=== PATIENT | female | born 1970 | race Caucasian/White ===

== ENCOUNTER 2021-07-13 14:51 | Outpatient (CLI) | payer OTHER, SELFPAY ==
--- NOTE | 2021-07-13 15:01 | XRR_ITS ---
PROCEDURE INFORMATION: Exam: XR Left Knee Exam date and time: 07/13/2021 3:01 PM Age: 50 years old Clinical indication: Pain; Knee; Left; Additional info: Acute L knee pain TECHNIQUE: Imaging protocol: XR Left knee. Views: 3 views. COMPARISON: No relevant prior studies available. FINDINGS: Bones/joints: Normal. Soft tissues: Normal. XR/XR knee LT 3V* [id number] IMPRESSION: Negative for bony abnormality
== END 2021-07-13 14:52 | disposition home or self-care (01) ==
LOC: RAD 14:59
PROVIDERS: PCP Family Medicine; Visit Provider Electrodiagnostic Medicine
DX: M25.562 Pain in left knee (principal)
CPT/HCPCS: 73562

== ENCOUNTER 2023-01-26 10:45 | Outpatient (CLI) | payer OTHER, SELFPAY ==
--- NOTE | 2023-01-26 11:29 | XRR_ITS ---
PROCEDURE INFORMATION: Exam: XR Chest Exam date and time: 01/26/2023 11:32 AM Age: 52 years old Clinical indication: Patient HX: Ex smoker, cough for 1 week TECHNIQUE: Imaging protocol: Radiologic exam of the chest. Views: 2 views. COMPARISON: No relevant prior studies available. FINDINGS: Lungs: There is no consolidation. Pleural spaces: There is no pleural effusion or pneumothorax. Heart/Mediastinum: Cardiomediastinal contours are unremarkable. Bones/joints: Bones are unremarkable. XR/XR chest 2V* [id number] IMPRESSION: No acute findings.
== END 2023-01-26 10:46 | disposition home or self-care (01) ==
PROVIDERS: PCP Family Medicine; Visit Provider Family Medicine
DX: R05.9 Cough, unspecified (principal); F17.210 Nicotine dependence, cigarettes, uncomplicated
CPT/HCPCS: 71046

== ENCOUNTER 2023-02-28 14:58 | Outpatient (CLI) | payer OTHER, SELFPAY ==
--- NOTE | 2023-02-28 15:11 | CT_ITS ---
WS: [id number] CT HEAD NONCONTRAST HISTORY: DIZZINESS, CONCUSSION WITH LOSS OF CONSCIOUSNESS TECHNIQUE: Contiguous axial imaging performed through the brain in 2.5 mm imaging. Bone and soft tiss ue windows. Sagittal and coronal reformats reviewed. All CT scans at [facility] use at least one of these dose optimization techniques: automated exposure control; mA and/or kV adjustment per pa tient size (includes targeted exams where dose is matched to clinical indication); or iterative recon struction. DLP: 995.88 mGy.cm COMPARISON: None available. No acute intracranial hemorrhage, midline shift or mass effect. No atrophy or prior infarcts or herniation. Prominent perivascular spaces bilaterally along the infe rior basal ganglia versus very small lacunar infarcts. Ventricles: Normal size with no hydrocephalus. No inferior displacement of cerebellar tonsils. Paranasal sinuses: As visualized are clear. Mastoid air cells: Well pneumatized. Calvarium and scalp: Skull is intact with no soft tissue edema or swelling. CT/CT head wo con* [id number] IMPRESSION: 1. No acute intracranial hemorrhage or edema. 2. Small perivascular spaces versus lacunar infarcts along the inferior basal ganglia. Favor perivascular spaces.
== END 2023-02-28 14:59 | disposition home or self-care (01) ==
LOC: RAD 15:04
PROVIDERS: PCP Family Medicine; Visit Provider Family Medicine
DX: R42 Dizziness and giddiness (principal); R41.3 Other amnesia; R40.20 Unspecified coma; S06.0XAA Concussion with loss of consciousness status unknown, initial encounter; X58.XXXA Exposure to other specified factors, initial encounter
CPT/HCPCS: 70450

== ENCOUNTER → 2023-12-09 12:07 | Outpatient (BNVA) | payer BC, SELFPAY | PROVIDERS: PCP Family Medicine; Visit Provider Emergency Medicine | DX: R07.9 Chest pain, unspecified (principal); R06.02 Shortness of breath | CPT/HCPCS: 71046 ==

== ENCOUNTER 2023-12-27 16:14 | Outpatient (CLI) | payer BC, SELFPAY ==
--- NOTE | 2023-12-27 16:24 | XRR_ITS ---
PROCEDURE INFORMATION: Exam: XR Left Ribs Exam date and time: 12/27/2023 4:28 PM Age: 53 years old Clinical indication: Injury or trauma; Fall; Rib area, left side; Blunt trauma; Additional info: Rib pain TECHNIQUE: Imaging protocol: Radiologic exam of the left ribs. Views: 2 views. COMPARISON: CR XR chest 2V* [id number] 12/09/2023 12:15 PM FINDINGS: Bones/joints: No evidence of rib fracture. Soft tissues: Normal. XR/XR ribs LT 2V* [id number] IMPRESSION: No acute findings.
== END 2023-12-27 16:15 | disposition home or self-care (01) ==
LOC: RAD 16:18
PROVIDERS: PCP Family Medicine; Visit Provider Family Medicine
DX: R07.81 Pleurodynia (principal); W19.XXXA Unspecified fall, initial encounter
CPT/HCPCS: 71100

== ENCOUNTER 2024-09-17 10:20 | Outpatient (CLI) | payer BC, SELFPAY ==
--- NOTE | 2024-09-17 10:26 | XR_ITS ---
WS: [id number] XR lumbar spine 6V w f/e [id number] REASON FOR EXAM: LOW BACK PAIN FINDINGS: Mild dextroscoliosis. Normal lordosis. Mild superior endplate compression deformities L1-L3. Appear chronic. Moderate narrowing of the disc spaces at L1-L2, L2-L3, and L5-S1. No spondylolysis. In the neutral position 5 mm of anterolisthesis of L3 in relation to L2. In the neutral position 4 mm of anterolisthesis of L4 in relation to L3. Above listheses are relatively stable in flexion and reduces somewhat in extension. Moderate degenerative changes in the facet joints at L5 5 S1. XR/XR lumbar spine 6V w f/e [id number] IMPRESSION: Degenerative spondylosis as above.
--- NOTE | 2024-09-17 10:26 | XR_ITS ---
WS: [id number] XR hip LT 2-3V wo/w pel* [id number] REASON FOR EXAM: LEFT HIP JOINT PAIN FINDINGS: No fracture or focal bone lesion. Moderate narrowing of the posterior inferior joint space with mild subchondral sclerosis of the aceta bulum. Anterior superior joint space is relatively well-preserved. No abnormality in the femoral head. XR/XR hip LT 2-3V wo/w pel* [id number] IMPRESSION: Mild to moderate osteoarthritis in the left hip as above.
== END 2024-09-17 10:21 | disposition home or self-care (01) ==
LOC: RAD 10:22
PROVIDERS: PCP Family Medicine; Visit Provider Family Medicine
DX: M43.16 Spondylolisthesis, lumbar region (principal); M51.360 Other intervertebral disc degeneration, lumbar region with discogenic back pain only
CPT/HCPCS: 72114; 73502

== ENCOUNTER 2024-09-24 07:49 | Outpatient (CLI) | payer BC, SELFPAY ==
--- NOTE | 2024-09-24 07:53 | MM_ITS ---
WS: [id number] BILATERAL 3D TOMOSYNTHESIS DIGITAL SCREENING MAMMOGRAPHY WITH CAD CLINICAL INFORMATION: SCREENING HISTORY: Screening mammogram. No current complaints. COMPARISON: 2019 TECHNIQUE: Bilateral CC and MLO views. FINDINGS: Scattered fibroglandular densities bilaterally. No suspicious focal mass, asymmetry, calcifications, or architectural distortion. No evidence of malignancy. A few tiny incidental punctate calcifications . MM/MM [facility] tomosynthesis [id number] IMPRESSION: DENSITY: There are scattered areas of fibroglandular density. BI-RADS: 2 - Benign. FOLLOW UP: 1 Year Follow-up Recommend return to annual screening mammography.
== END 2024-09-24 07:50 | disposition home or self-care (01) ==
LOC: RAD 07:50
PROVIDERS: PCP Family Medicine; Visit Provider Family Medicine
DX: Z12.31 Encounter for screening mammogram for malignant neoplasm of breast (principal); R92.323 Mammographic fibroglandular density, bilateral breasts
CPT/HCPCS: 77063; 77067